=== PATIENT | female | born 1950 | race Caucasian/White ===

== ENCOUNTER 2019-11-28 18:01 | Inpatient (IN) ==
[2019-11-28] MEDS ORDERED: NS 1,000 ML IV ONE ×2 (18:47→21:43)
[2019-11-28 19:10] LABS: URINE SOURCE CLEAN CATCH
[2019-11-28 19:13] LABS: BILIRUBIN URINE NEGATIVE (NEGATIVE); BLOOD URINE TRACE (NEGATIVE); COLOR YELLOW; GLUCOSE URINE NEGATIVE (NEGATIVE); KETONE URINE NEGATIVE (NEGATIVE); LEUKOCYTES URINE LARGE (NEGATIVE); NITRITE URINE NEGATIVE (NEGATIVE); PH URINE 5.5; PROTEIN URINE TRACE mg/dL (NEGATIVE); SP GRAVITY URINE 1.023; TURBIDITY URINE HAZY (CLEAR); UR EPITHELIAL CELLS >10 /HPF (<10); URINE BACTERIA 1+ /HPF; URINE RBC <10 /HPF (<10); UROBILINOGEN URINE NORMAL (NORMAL)
--- NOTE | 2019-11-28 19:17 | Diag Imaging Result Doc PS360 ---
EXAM: CT HEAD W/O CONTRAST 11/28/2019 HISTORY: stroke symptoms, left hand numbness TECHNIQUE: This exam was performed using automated exposure control, adjustment of mA or kV according to patient size, and/or use of iterative reconstruction technique. COMMENT: There is no evidence of mass effect, bleed, or abnormal extra-axial fluid collection. The calvarium is intact. The visualized paranasal sinuses are clear. IMPRESSION: No evidence of acute disease. Electronically signed by Arjun Caba 11/28/2019 7:15 PM
[2019-11-28 19:20] LABS: UR AMPHETAMINES QUAL NONE DETECTED (NONE DETECT); UR BARBITUATES QUAL NONE DETECTED (NONE DETECT); UR BENZODIAZEPIN QUAL NONE DETECTED (NONE DETECT); UR CANNABINOIDS QUAL NONE DETECTED (NONE DETECT); UR COCAINE QUAL NONE DETECTED (NONE DETECT); UR METHADONE QUAL NONE DETECTED (NONE DETECT); UR METHAMPHETAMINE QUAL NONE DETECTED (NONE DETECT); UR OPIATES QUAL NONE DETECTED (NONE DETECT); UR OXYCODONE QUAL NONE DETECTED (NONE DETECT); UR PCP QUAL NONE DETECTED (NONE DETECT); UR PROPOXYPHENE QUAL NONE DETECTED (NONE DETECT); UR TCA QUAL NONE DETECTED (NONE DETECT)
--- NOTE | 2019-11-28 19:21 | Diag Imaging Result Doc PS360 ---
EXAM: CHEST-PORTABLE 11/28/2019 HISTORY: left hand numbness TECHNIQUE: AP portable at 1921 COMMENT: There is no evidence of acute cardiac or pulmonary disease. Compared to 01/10/2019 there has been no significant change. IMPRESSION: No acute disease. Electronically signed by Arjun Caba 11/28/2019 7:19 PM
[2019-11-28 20:16] LABS: BASO# 0.04 X1000 (0.0-0.2); BASO% 0.3 % (0.0-0.8); EOS# 0.24 X1000 (0.0-0.7); HEMATOCRIT 47.3 % (37.0-47.0); HEMOGLOBIN 14.7 g/dL (12.0-16.0); IMM GRAN# 0.06 X1000 (0.0-0.04); IMM GRAN% 0.5 % (0.0-0.5); LYMPH# 2.12 X1000 (1.2-3.4); MCH 27.1 PG (27-31); MCHC 31.1 g/dL (33-37); MCV 87.1 FL (81-99); MONO# 0.88 X1000 (0.11-0.59); MONO% 7.5 % (1.7-9.3); MPV 10.9 FL (7.4-10.4); NEUT# 8.43 X1000 (1.4-6.5); NEUT% 71.7 % (42.2-75.2); PLT 291 X1000 (130-400); RBC 5.43 XMIL (4.2-5.4); RDW 14.5 % (11.5-14.5); WBC 11.77 X1000 (4.8-10.8)
[2019-11-28] MEDS ORDERED: ASPIRIN PO ONE (20:29)
[2019-11-28 20:31] LABS: INR 0.94
[2019-11-28 20:32] LABS: PTT 28.5 Seconds (22.3-41.8)
[2019-11-28 20:44] LABS: AGAP 16; ALBUMIN 4.2 g/dL (3.5-5.0); ALKALINE PHOSPHATASE 98 U/L (32-104); BUN 15 mg/dL (8-22); CALCIUM 9.3 mg/dL (8.8-10.2); CHLORIDE 105 mmol/L (98-107); COSMO 282; CREATININE 0.7 mg/dL (0.5-0.9); ESTIMATED GFR > 60; GLUCOSE 94 mg/dL (70-104); GOT 14 U/L (10-30); GPT 11 U/L (10-36); POTASSIUM 4.3 mmol/L (3.5-5.1); SODIUM 141 mmol/L (136-145); TCO2 20 mmol/L (25-35); TOTAL PROTEIN 7.1 g/dL (6.3-8.3)
[2019-11-28] MEDS ORDERED: ROCEPHIN 1 GM in NS 50 ML IV ONE (20:55)
--- NOTE | 2019-11-28 21:42 | PROVIDER DOCUMENTATION ---
This chart was entered by Alondra Osei Scribe, acting as scribe for Jamison Lucero MD. HPI-Neurological Disorder - General Chief Complaint: Numbness Stated Complaint: WEAKNESS IN RIGHT ARM/HAND Time Seen by Provider: 11/28/19 19:15 Source: patient Allergies/Adverse Reactions: Patient Allergies Allergy/AdvReac Type Severity Reaction Status Date / Time corn Allergy SHORTNESS Verified 01/10/19 15:12 OF BREATH hydrocodone Allergy ITCHING Verified 01/10/19 15:12 Home Medications: Home Medication List Medication Instructions Recorded Confirmed Last Taken Type ATORVAstatin [Lipitor] 40 mg PO HS 07/30/17 07/30/17 07/29/17 History Diclofenac Sodium 1 applicatn PRN 07/30/17 Unknown History Duloxetine [Cymbalta] 60 mg PO BID 07/30/17 07/30/17 07/29/17 History Fluticasone 50 Mcg Nasal [place] 2 spray BID 07/30/17 07/30/17 07/29/17 History [Flonase] Lisinopril/Hydrochlorothiazide 1 tab PO HS 07/30/17 07/30/17 07/29/17 History [Lisinopril-Hctz 20-25 mg Tab] Lubiprostone [Amitiza] 8 mcg PO BID 07/30/17 07/30/17 07/29/17 History Mometasone Furoate 220 Mcg INH 1 puff PO BID 07/30/17 07/30/17 07/29/17 History [Asmanex 220 Microgm Inhaler] Naproxen 440 mg PO BID 07/30/17 07/30/17 07/29/17 History Tizanidine HCl [Zanaflex] 2 mg PO BID 07/30/17 07/30/17 07/29/17 History Tramadol [Ultram] 50 mg PO Q6H PRN PRN #12 tablet 07/30/17 Unknown Rx Azithromycin [Zithromax Z-Alvin] 250 mg PO DIRECTED #1 pkg 03/03/18 Unknown Rx Guaifenesin/Dm E.r. [Mucinex Dm] 1 each PO BID #20 tablet 03/03/18 Unknown Rx Methylprednisolone [Medrol Dosepak] 4 mg PO DIRECTED #1 package 03/03/18 Unknown Rx Cephalexin [Keflex] 500 mg PO TID #21 cap 12/21/18 Unknown Rx Prednisone 10 mg PO DAILY #21 tab 12/21/18 Unknown Rx Azithromycin [Zithromax Z-Alvin] 250 mg PO DIRECTED #1 pkg 01/10/19 Unknown Rx Methylprednisolone [Medrol Dosepak] 1 packet PO DIRECTED #1 pkg 01/10/19 Unknown Rx - History of Present Illness-Neuro Nature of Presenting Problem: PT IS A 69 YOWF C/O TREMORS AND NUMBNESS IN RT HAND AND GENERALIZED WEAKNESS STARTING TONIGHT. PT STS SHE GOT HOT WHILE COOKING DINNER AND WAS DIAPHORETIC. PT HAS NEVER HAD SYMPTOMS BEFORE. FELT "OFF BALANCE." NO SLURRED SPEECH OR SYNCOPE. HX HTN, SEASONAL ALLERGIES. LYING DOWN IMP SYMPTOMS AND STANDING/MVMT WORSENS. NONSMOKER, NO ALCOHOL OR DRUG USE. Review of Systems - Adult - REVIEW OF SYSTEMS - ADULT Constitutional: reports: no symptoms reported. denies: chills, fever, night sweats Eyes: reports: no symptoms reported Ears, Nose, Mouth & Throat: reports: no symptoms reported Cardiovascular: reports: no symptoms reported Respiratory: reports: no symptoms reported Gastrointestinal: reports: no symptoms reported Genitourinary: reports: no symptoms reported Musculoskeletal: reports: see HPI, muscle weakness (GENERALIZED). denies: back pain, joint swelling, muscle aches Integumentary: reports: no symptoms reported Neurological: reports: see HPI, numbness (RT HAND), tremors (RT HAND). denies: dizziness/vertigo, slurred speech, syncope Psychiatric: reports: no symptoms reported Endocrine: reports: no symptoms reported Hematologic/Lymphatic: reports: no symptoms reported Allergic/Immunologic: reports: no symptoms reported All Other Systems: Reviewed and Negative Past History - Adult - PAST MEDICAL HISTORY-ADULT Review of Records: reports: Nursing Assessment Review, Medications Reviewed, Social history reviewed & non-contributory. Major Childhood Illnesses: reports: denies history Cardiovascular: reports: HTN, other Respiratory: reports: asthma Gastrointestinal: reports: denies history Obstetrical/Gynecological: reports: denies history Genitourinary: reports: denies history Musculoskeletal: reports: fibromyalgia Neurological: reports: denies history Psychiatric: reports: anxiety Endocrine/Immune: reports: denies history Other Conditions: reports: denies history - PRIOR SURGERIES/PROCEDURES Surgical/Procedure History: reports: orthopedic (extremity), other - IMMUNIZATION STATUS Childhood Immunizations: See Nurse Assessment Flu Vaccine: See Nurse Assessment - FAMILY HISTORY Family History: reviewed, not pertinent - SOCIAL HISTORY Smoking: non-smoker Substance Use: none/never Physical Exam- Neurological - Physical Exam-Neuro Initial Vital Signs Reviewed: Yes General Appearance: appears well, alert, no apparent distress, obese. 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 negative: abnormal speech, facial asymmetry, facial droop, facial paresthesias, facial weakness Motor/Sensory: no motor deficit, no pronator drift, sensory deficit (LESS SENSORY TO RT HAND). negative: no sensory deficit, pronator drift (R), pronator drift (L), weak motor strength RLE, weak motor strength LLE Neurologic: sensory deficit (RT HAND). negative: no motor/sensory deficits, aphasia, facial droop, focal weakness, motor weakness Integumentary: normal color, normal turgor, warm/dry Psych/Mental Status: normal mood/affect, normal thought content, normal thought process, oriented x 3 - Glascow Coma Scale Best Eye Response: (4) open spontaneously Best Verbal Response: (5) oriented Best Motor Response: (6) obeys commands Total Glascow Score: 15 Progress - PLAN OF CARE/RESULTS Progress/Plan/Lab Results: Vital Signs - 8 hr 11/28/19 18:05 11/28/19 20:00 11/28/19 21:09 Temperature 97.4 F L Pulse Rate 83 74 75 Respiratory Rate 16 14 14 Blood Pressure 127/87 169/93 162/80 O2 Sat by Pulse Oximetry 96 96 99 Laboratory Results - last 24 hr 11/28/19 11/28/19 11/28/19 19:03 19:03 20:04 WBC 11.77 H RBC 5.43 H Hgb 14.7 Hct 47.3 H MCV 87.1 MCH 27.1 MCHC 31.1 L RDW Std Deviation 14.5 Plt Count 291 MPV 10.9 H Immature Gran % (Auto) 0.5 Neut % (Auto) 71.7 Lymph % (Auto) 18.0 L Barton % (Auto) 7.5 Eos % (Auto) 2.0 Baso % (Auto) 0.3 Immature Gran # (Auto) 0.06 H Neut # (Auto) 8.43 H Lymph # (Auto) 2.12 Barton # (Auto) 0.88 H Eos # (Auto) 0.24 Baso # (Auto) 0.04 PT INR PTT (Actin FS) Sodium Potassium Chloride Carbon Dioxide Anion Gap BUN Creatinine Estimated GFR/1.73 m2 BUN/Creatinine Ratio Glucose Calculated Osmolality Calcium Total Bilirubin AST ALT Alkaline Phosphatase Troponin T High Sens Total Protein Albumin Globulin Albumin/Globulin Ratio Urine Source CLEAN CATCH Urine Color YELLOW Urine Turbidity HAZY Urine pH 5.5 Ur Specific [place] 1.023 Urine Protein TRACE A Ur Glucose (Stick) NEGATIVE Ur Ketones (Stick) NEGATIVE Urine Blood TRACE A Urine Nitrite NEGATIVE Urine Bilirubin NEGATIVE Urobilinogen Dipstick NORMAL Urine Leukocytes LARGE A Urine WBC (Auto) 10-20 A Urine RBC (Auto) <10 U Epithel Cells (Auto) >10 A Urine Bacteria (Auto) 1+ Urine Opiates Screen NONE DETECTED Ur Oxycodone Screen NONE DETECTED Urine Methadone Screen NONE DETECTED U Propoxyphene Qual NONE DETECTED Ur Barbituates Screen NONE DETECTED Ur Tricyclics Screen NONE DETECTED Ur Phencyclidine Scrn NONE DETECTED Ur Amphetamines Screen NONE DETECTED U Methamphetamines Scrn NONE DETECTED U Benzodiazepines Scrn NONE DETECTED Urine Cocaine Screen NONE DETECTED U Cannabinoids Screen NONE DETECTED 11/28/19 11/28/19 11/28/19 20:04 20:04 20:04 WBC RBC Hgb Hct MCV MCH MCHC RDW Std Deviation Plt Count MPV Immature Gran % (Auto) Neut % (Auto) Lymph % (Auto) Barton % (Auto) Eos % (Auto) Baso % (Auto) Immature Gran # (Auto) Neut # (Auto) Lymph # (Auto) Barton # (Auto) Eos # (Auto) Baso # (Auto) PT 13.0 INR 0.94 PTT (Actin FS) 28.5 Sodium 141 Potassium 4.3 Chloride 105 Carbon Dioxide 20 L Anion Gap 16 BUN 15 Creatinine 0.7 Estimated GFR/1.73 m2 > 60 BUN/Creatinine Ratio 21 Glucose 94 Calculated Osmolality 282 Calcium 9.3 Total Bilirubin 0.20 AST 14 ALT 11 Alkaline Phosphatase 98 Troponin T High Sens < 6 Total Protein 7.1 Albumin 4.2 Globulin 3.0 Albumin/Globulin Ratio 1.0 Urine Source Urine Color Urine Turbidity Urine pH Ur Specific [place] Urine Protein Ur Glucose (Stick) Ur Ketones (Stick) Urine Blood Urine Nitrite Urine Bilirubin Urobilinogen Dipstick Urine Leukocytes Urine WBC (Auto) Urine RBC (Auto) U Epithel Cells (Auto) Urine Bacteria (Auto) Urine Opiates Screen Ur Oxycodone Screen Urine Methadone Screen U Propoxyphene Qual Ur Barbituates Screen Ur Tricyclics Screen Ur Phencyclidine Scrn Ur Amphetamines Screen U Methamphetamines Scrn U Benzodiazepines Scrn Urine Cocaine Screen U Cannabinoids Screen Orders Category Date Time Status Cardiac Monitoring DIRECTED Care 11/28/19 18:45 Active Finger Stick Blood Sugar (ED) DIRECTED Care 11/28/19 18:45 Active Saline Loc NOW Care 11/28/19 18:45 Active CHEST-PORTABLE [RAD] Stat Exams 11/28/19 18:[address] HEAD W/O CONTRAST [CT] Stat Exams 11/28/19 18:45 Completed CBC WITH ELECTRONIC DIFF [HEME] Stat Lab 11/28/19 20:04 Completed COMPREHENSIVE METABOLIC PANEL [CHEM] Stat Lab 11/28/19 20:04 Completed PROTIME WITH INR [COAG] Stat Lab 11/28/19 20:04 Completed PTT [COAG] Stat Lab 11/28/19 20:04 Completed TROPONIN T HIGH SENSITIVITY Stat Lab 11/28/19 20:04 Completed URINALYSIS W/POSS RFLX CULT [URINALYSIS] Stat Lab 11/28/19 19:03 Completed URINE CULTURE [RM] Routine Lab 11/28/19 19:15 Ordered URINE DRUG SCREEN [address] Stat Lab 11/28/19 19:03 Completed 0.9% Sodium Chloride Inj [Ns] 1,000 ml Med 11/28/19 18:47 Discontinued IV 999 mls/hr Aspirin Med 11/28/19 20:29 Discontinued 325 mg PO NOW ONE CefTRIAXONE [Rocephin] 1 gm Med 11/28/19 20:55 Discontinued 0.9% Sodium Chloride Inj [Ns] 50 ml IV NOW EKG [EKG] Stat Ther 11/28/19 18:45 Ordered Result Diagrams: 11/28/19 20:04 11/28/19 20:04 - EKG 1 Time of EKG reading by physician:: 19:28 EKG Read and Signed by:: Jamison Lucero EKG Interpretation (*Must complete 3 of following elements*): Abnormal Rate: 76 Rhythm: NSR [place]: normal QRS: LVH (MINIMAL VOLTAGE CRITERIA FOR LVH, MAY BE NORMAL VARIANT) WA Interval: normal ST Wave: non-specific ST changes (T WAVE ABNORAMLITY, CONSIDER ANTERIOR ISCHEMIA) - XRAY 1 XRAY Study: Chest Impression: Normal, See EMR Report ( EXAM: CHEST-PORTABLE 11/28/2019 HISTORY: left hand numbness TECHNIQUE: AP portable at 1921 COMMENT: There is no evidence of acute cardiac or pulmonary disease. Compared to 01/10/2019 there has been no significant change. IMPRESSION: No acute disease. Electronically signed by Arjun Caba 11/28/2019 7:19 PM) Comparison with other Films: no changes - CT/MRI 1 CT Study: Head Impression: Normal, See EMR Report ( EXAM: CT HEAD W/O CONTRAST 11/28/2019 HISTORY: stroke symptoms, left hand numbness TECHNIQUE: This exam was performed using automated exposure control, adjustment of mA or kV according to patient size, and/or use of iterative reconstruction technique. COMMENT: There is no evidence of mass effect, bleed, or abnormal extra-axial fluid collection. The calvarium is intact. The visualized paranasal sinuses are clear. IMPRESSION: No evidence of acute disease. Electronically signed by Arjun Caba 11/28/2019 7:15 PM) - CONSULTS/PCP/HOSPITALIST Notification #1 *Consult/PCP/Hospitalist*: [facility] Time Discussed: 20:10 Consult Disposition: other #2 Consult: [facility] NE[facility]O DR. OWUSU Time Discussed: 20:20 Consult Disposition: other (WORK PT UP TO BE ADMITTED TO [facility]. NO TPA) #3 Consult: DR. PEDRO Time Discussed: 21:26 Consult Disposition: Admit Departure - Departure Date of Disposition Decision: 11/28/19 Time of Disposition Decision: 21:41 DIAGNOSIS: Weakness, Numbness and tingling, UTI (urinary tract infection), TIA (transient ischemic attack) Disposition: ADMITTED INPATIENT 09 Certified Medical Emergency: Emergent Condition: Fair Referrals and Follow-Ups: None,PCP [Primary Care Provider] - - Critical Care Note This patient required my direct & personal management of CC.: No Attestation - Physician/ IVÁN Attestation Patient care was provided by Advanced Practice Provider:: No The physician spent face to face time with patient:: Yes Advanced Practice Provider documentation review:: Supervising physician onsite a nd consulted in the evaluation and care of this patient. The physician did have a face to face encounter with the patient. - NIH Stroke Scale Level of Consciousness: 0-Alert LOC Questions (ask month and age): 0-Answers Both Correctly LOC Commands (ask to open & close eyes;make a fist, let go): 0-Obeys Both Cor rectly Best Gaze (horizontal eye movement): 0-Normal Visual (use finger movement, counting or visual threat): 0-No Visual Loss Facial Palsy (show teeth or raise eyebrows & close eyes tght: 0-Symmetrical Movement Motor Function-left arm: 0-Normal Motor Function-right arm: 0-Normal Motor Function-left le-Normal Motor Function-right le-Normal Limb Ataxia(bwjyzg-[id number], or heel to bruno): 0-No Ataxia Sensory(pin prick to face,arms,trunk,legs-compare side/side): 1-Mild to Moderate Decrease in Sensation Best Language(name item/read sentence.Ex-Down to Earth): 0-No Aphasia Dysarthria(Pt read words or say words Ex.Mama,Tip-Top,Thanks: 0-Normal Articulation Extinction and Inattention: 0-Normal Modified Smith Score Criteria: 2-slight disability This chart was documented by the indicated scribe, (Alondra Osei, Scribe) and accurately reflects the services I performed and decisions made by me, Jamison Lucero MD, as attested by the provider's signature.
[2019-11-28] MEDS ORDERED: TYLENOL PO PRN (21:43)
[2019-11-28] MEDS ORDERED: ZOFRAN IV PRN (21:43)
--- NOTE | 2019-11-28 23:19 | EKG Report ---
Test Performed on : 11/28/2019 7:28:41 PM Test Reason : left hand numbness Blood Pressure : / mmHG Vent. Rate : 076 BPM Atrial Rate : 076 BPM P-R Int : 152 ms QRS Dur : 092 ms QT Int : 422 ms P-R-T Axes : 046 -12 036 degrees QTc Int : 474 ms Normal sinus rhythm. Minimal voltage criteria for LVH, may be normal variant T wave abnormality, consider anterior ischemia Prolonged QT Abnormal ECG No previous ECGs available Unconfirmed Result
[2019-11-29 06:20] LABS: BASO# 0.04 X1000 (0.0-0.2); BASO% 0.4 % (0.0-0.8); EOS# 0.25 X1000 (0.0-0.7); EOS% 2.4 % (0.0-10.0); HEMATOCRIT 44.7 % (37.0-47.0); HEMOGLOBIN 13.4 g/dL (12.0-16.0); IMM GRAN# 0.03 X1000 (0.0-0.04); IMM GRAN% 0.3 % (0.0-0.5); LYMPH# 3.48 X1000 (1.2-3.4); LYMPH% 33.3 % (20.5-51.1); MCH 26.3 PG (27-31); MCV 87.6 FL (81-99); MONO# 0.89 X1000 (0.11-0.59); MONO% 8.5 % (1.7-9.3); NEUT# 5.76 X1000 (1.4-6.5); NEUT% 55.1 % (42.2-75.2); PLT 323 X1000 (130-400); RDW 14.4 % (11.5-14.5); WBC 10.45 X1000 (4.8-10.8)
[2019-11-29 06:28] LABS: AGAP 13; ALBUMIN 3.6 g/dL (3.5-5.0); ALKALINE PHOSPHATASE 89 U/L (32-104); BUN 15 mg/dL (8-22); CHLORIDE 106 mmol/L (98-107); COSMO 279; CREATININE 0.6 mg/dL (0.5-0.9); ESTIMATED GFR > 60; GLUCOSE 101 mg/dL (70-104); GOT 13 U/L (10-30); GPT 9 U/L (10-36); POTASSIUM 3.9 mmol/L (3.5-5.1); SODIUM 139 mmol/L (136-145); TCO2 21 mmol/L (25-35); TOTAL PROTEIN 6.6 g/dL (6.3-8.3)
[2019-11-29] MEDS ORDERED: DUONEB (A & A) INH PRN (08:49)
[2019-11-29] MEDS ORDERED: ROCEPHIN 1 GM in NS 50 ML IV SCH ×2 (09:00→21:00)
[2019-11-29] MEDS ORDERED: BUSPAR PO SCH (09:00)
[2019-11-29] MEDS: BREO ELLIPTA 100/25 MCG INH INH SCH (10:00)
[2019-11-29] MEDS: ZANAFLEX PO SCH ×3 (10:01→20:28)
[2019-11-29] MEDS: SINGULAIR PO SCH (10:01)
[2019-11-29] MEDS: NAPROSYN PO SCH (10:02)
[2019-11-29] MEDS: PRINIVIL PO SCH (10:02)
[2019-11-29] MEDS: ASPIRIN PO SCH (10:02)
[2019-11-29] MEDS: CYMBALTA PO SCH ×2 (10:02→20:28)
[2019-11-29] MEDS: FLONASE NAS SCH (10:02)
[2019-11-29] MEDS: AMITIZA PO SCH ×2 (10:04→16:46)
[2019-11-29 10:55] LABS: HEMOGLOBIN A1C 5.5 % (4.8-6.0)
[2019-11-29] MEDS: BUSPAR PO SCH ×2 (11:22→20:28)
--- NOTE | 2019-11-29 13:11 | HISTORY AND PHYSICAL ---
PRIMARY CARE PROVIDER: No one. CHIEF COMPLAINT: Right-sided weakness, tremor, and numbness and tingling. HISTORY OF PRESENT ILLNESS: Ms. Delia Soriano is a 69-year-old female with a medical history of morbid obesity and a BMI of 50.6, hypertension, asthma, fibromyalgia, anxiety, hyperlipidemia, and sleep apnea. Wears a CPAP at night. States that around 5:30 yesterday, she started noticing her right hand started trembling and that the palm and the fingertips in her hand became numb and tingly. Her right arm became weak. She did not notice any changes as far strength on her right leg, but noticed it did feel a little bit more numb than the left leg. She felt foggy-headed, but her speech remained clear. She felt to just a little bit off balance. Prior to that, she was cooking, got hot and diaphoretic. She has never had these symptoms before. She stated that the symptoms started around 5:30 and it almost resolved around 2 o'clock this morning, but she still continues to have a little bit of numbness and tingling in her right upper and lower extremities. Neurological exam is intact. However, she does have the numbness and tingling on the right upper and lower extremity. So, we will complete a full stroke evaluation. PAST MEDICAL HISTORY: 1. Morbid obesity BMI of 50.6. 2. Asthma. 3. Hypertension. 4. Fibromyalgia. 5. Anxiety. 6. Hyperlipidemia. 7. Obstructive sleep apnea, wears CPAP at night. 8. Seasonal allergies. PAST SURGICAL HISTORY: Left heel spur removed. SOCIAL HISTORY: Denies tobacco, but was exposed to secondhand smoke from her for 35 years. However, he 12 years ago. She lives with her son and [id number]. 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 Denies alcohol or illicit drug use and has no difficulties with ambulation at home. FAMILY HISTORY: Mother; atrial fibrillation. Father; 2 heart attacks, his first was in his early 60s. ALLERGIES: [place] and hydrocodone. She also claims that she has an allergy to Ultram, it causes her to have itching internally. HOME MEDICATIONS: 1. Amitiza 8 mcg p.o. twice a day. 2. Breo Ellipta 1 puff inhaled daily. 3. BuSpar 15 mg p.o. twice daily. 4. Cymbalta 60 mg p.o. twice daily. 5. Flonase daily. 6. Lisinopril 10 mg p.o. daily. 7. Naproxen 500 mg p.o. daily. 8. Singulair 10 mg p.o. daily. 9. Zanaflex 2 mg p.o. t.i.d. REVIEW OF SYSTEMS: Fourteen point review of systems are complete and all were negative for those mentioned above HPI. PHYSICAL EXAMINATION: VITAL SIGNS: Temperature 97.9 degrees, heart rate 72, respiratory rate 16, blood pressure 153/88, O2 saturation 99% on room air. GENERAL: Ms. Delia Soriano is a 69-year-old female. She is in no acute distress. She is able answer questions appropriately. HEENT: Atraumatic, normocephalic. Pupils equal, round, reactive to light. Extraocular movements intact. Mucous membranes are moist. NECK: Trachea midline. CARDIOVASCULAR: S1, S2. Regular rate and rhythm. No rubs, gallops, murmurs. No lower extremity edema. +2 dorsalis and radial pulses. Negative JVD or carotid bruits. PULMONARY: Clear to auscultation, bilateral breath sounds. No accessory muscle use or work of breathing noted. GI: Soft, nontender, nondistended. Positive bowel sounds x4. EXTREMITIES: Moves all extremities equally. Full range of motion. NEUROLOGIC: Alert and oriented x3. Follows commands. Decreased sensory in the right upper and lower extremity. SKIN: Warm, dry, intact. LABORATORY DATA: White blood cells 10,000, hemoglobin 13, hematocrit 44, platelet count 323,000. Sodium 139, potassium 3.9, BUN 15, creatinine 0.6, glucose 101, calcium 9.0, bilirubin 0.20, AST 13, ALT 9, albumin is 3.6. Urinalysis; trace protein, trace blood, large leukocytes, 10 to 20 white blood cells, 1+ bacteria. Urine drug screen negative. IMAGING: Head CT; no acute disease. Chest x-ray; no acute disease. EKG sinus rhythm, rate 76, QTc 474. ASSESSMENT AND PLAN: 1. Transient ischemic attack versus cerebrovascular accident. She is still having numbness and tingling in the right upper and lower extremity, but all other symptoms have since resolved. She will have brain MRI, MRA, and carotid ultrasound. Echocardiogram to fully evaluate. Add a hemoglobin A1c and a lipid panel. Physical Therapy consult. 2. Hypertension. Continue home medications. 3. Asthma. Continue nebulizers as needed. 4. Morbid obesity. Diet and exercise recommended. 5. Anxiety with fibromyalgia. Continue Cymbalta, BuSpar, naproxen and Zanaflex. 6. Seasonal allergies. Continue Singulair. 7. Deep venous thrombosis prophylaxis, SCDs. Dictated by TOPHER Plunkett for Theo Musa MD cc: TOPHER Plunkett MD
--- NOTE | 2019-11-29 16:18 | Diag Imaging Result Doc PS360 ---
MRA BRAIN W/O CONTRAST - 11/29/2019 INDICATION: cva symptoms TECHNIQUE: Noncontrast dxjm-st-nqixax technique was used COMPARISON: None FINDINGS: There is severe patient motion artifact distorting the exam. The major intracranial arteries are patent. No aneurysm. IMPRESSION: No obvious abnormality. Electronically signed by Jaylen Craven 11/29/2019 4:16 PM
--- NOTE | 2019-11-29 16:20 | Diag Imaging Result Doc PS360 ---
MRI BRAIN - 11/29/2019 INDICATION: cva symptoms COMPARISON: Head CT 11/28/2019 FINDINGS: There is significant patient motion artifact. There is a small focal old infarction at the posterior right occipital lobe. Otherwise, the ventricles and sulci are normal in size and contour. No area of restricted diffusion. No intracranial mass or hemorrhage. There is some mild deep cerebral white matter hyperintensity compatible with chronic microvascular ischemia. This also affects the clay and to a moderate extent. IMPRESSION: Chronic ischemic changes of the brain. No acute abnormality. Electronically signed by Jaylen Craven 11/29/2019 4:18 PM
--- NOTE | 2019-11-29 16:34 | Vascular Study Report ---
EXAM: Carotid Ultrasound HISTORY: cva symptoms TECHNIQUE: Carotid Doppler ultrasound COMPARISON: None. FINDINGS: Right: No occlusion or stenosis in the common carotid artery. No plaque. No plaque in the bulb. The peak systolic velocity in the internal carotid artery 63 cm/s. The ICA/CCA ratio 0.79. Antegrade vertebral flow. Left: There is normal flow in the common carotid artery. No occlusion or stenosis. Minimal plaque in the bulb. The peak systolic velocity in the internal carotid artery 73 cm/s. The ICA/CCA ratio 0.92. Antegrade vertebral flow. IMPRESSION: No stenosis over 40%. Electronically signed by Davy Moralez 11/29/2019 4:31 PM
--- NOTE | 2019-11-29 22:59 | PROGRESS NOTE ---
DATE: 11/29/2001 SUBJECTIVE/PLAN: Patient presented to the hospital with numbness and tingling in her right hand. Most of her symptoms have improved. We are going to admit to the hospital, will place her on antibiotics as she may have a urinary infection and begin workup. Further orders as needed. cc: Theo Musa MD
[2019-11-30 06:21] LABS: BASO# 0.04 X1000 (0.0-0.2); BASO% 0.4 % (0.0-0.8); EOS% 3.1 % (0.0-10.0); HEMOGLOBIN 13.7 g/dL (12.0-16.0); IMM GRAN# 0.04 X1000 (0.0-0.04); IMM GRAN% 0.4 % (0.0-0.5); LYMPH% 29.2 % (20.5-51.1); MCH 26.4 PG (27-31); MCHC 30.4 g/dL (33-37); MCV 86.9 FL (81-99); MONO# 0.55 X1000 (0.11-0.59); MONO% 5.7 % (1.7-9.3); MPV 11.2 FL (7.4-10.4); NEUT# 5.85 X1000 (1.4-6.5); NEUT% 61.2 % (42.2-75.2); PLT 327 X1000 (130-400); RBC 5.18 XMIL (4.2-5.4); RDW 14.4 % (11.5-14.5); WBC 9.58 X1000 (4.8-10.8)
[2019-11-30 06:39] LABS: AGAP 16; ALBUMIN 3.8 g/dL (3.5-5.0); ALKALINE PHOSPHATASE 92 U/L (32-104); BUN 16 mg/dL (8-22); CALCIUM 9.1 mg/dL (8.8-10.2); CHLORIDE 105 mmol/L (98-107); COSMO 283; CREATININE 0.7 mg/dL (0.5-0.9); ESTIMATED GFR > 60; GLUCOSE 139 mg/dL (70-104); GOT 14 U/L (10-30); GPT 10 U/L (10-36); MAGNESIUM 1.9 mg/dL (1.5-2.7); POTASSIUM 3.8 mmol/L (3.5-5.1); SODIUM 140 mmol/L (136-145); TCO2 20 mmol/L (25-35); TOTAL PROTEIN 6.8 g/dL (6.3-8.3)
[2019-11-30 08:02] VITALS: BP 156/74
[2019-11-30] MEDS: BREO ELLIPTA 100/25 MCG INH INH SCH (08:43)
[2019-11-30] MEDS: FLONASE NAS SCH (09:32)
[2019-11-30] MEDS: ASPIRIN PO SCH (09:32)
[2019-11-30] MEDS: NAPROSYN PO SCH (09:32)
[2019-11-30] MEDS: BUSPAR PO SCH (09:32)
[2019-11-30] MEDS: AMITIZA PO SCH ×2 (09:32→09:34)
[2019-11-30] MEDS: PRINIVIL PO SCH (09:32)
[2019-11-30] MEDS: SINGULAIR PO SCH (09:33)
[2019-11-30] MEDS: ZANAFLEX PO SCH (09:33)
[2019-11-30] MEDS: CYMBALTA PO SCH (09:33)
--- NOTE | 2019-11-30 14:58 | DISCHARGE SUMMARY ---
ADMISSION DATE: 11/28/2019 DISCHARGE DATE: 11/30/2019 She presented on 11/28/2019. ADMISSION DIAGNOSES: 1. Transient ischemic attack versus cerebrovascular accident. 2. Hypertension. 3. Asthma. 4. Morbid obesity. 5. Anxiety with fibromyalgia. 6. Seasonal allergies. DISCHARGE DIAGNOSES: 1. Urinary tract infection. 2. Most likely a transient ischemic attack. There are no obvious signs of cerebrovascular accident. Symptoms have resolved. 3. Asthma, stable. 4. Hypertension, stable. 5. Morbid obesity. 6. Anxiety and fibromyalgia. CONSULTATIONS: None. SURGERIES AND PROCEDURES: None. HOSPITAL COURSE: Ms. Delia Soriano is a 69-year-old, morbidly obese female with a medical history of hypertension, morbid obesity with a BMI of 50.6, asthma, hyperlipidemia, sleep apnea--she wears CPAP at night, who apparently started having symptoms of right upper and lower extremity numbness and tingling with trembling in the right upper extremity. She did not have any changes in her speech. Her head felt a little foggy and she felt like she was a little off balance. Apparently, she was cooking, got hot and sweaty. This started around 5:30 the day before. She was admitted and lasted until about 2:00 that morning. Full workup did not reveal any acute stroke. She did have some symptoms of urinary tract infection, for which that was treated and so it is a possibility that this could have been just a transient ischemic attack. Physical Therapy did see her as well while she was in here. DISCHARGE VITAL SIGNS: Temperature 98.0 degrees, heart rate 65, respiratory rate 18, blood pressure 156/74, O2 saturation 99% on room air. DISCHARGE LAB DATA: White blood cells 9,000, hemoglobin 13, hematocrit 45, platelet count 327,000. Sodium 140, potassium 3.8, BUN 16, creatinine 0.7 glucose 139. Hemoglobin A1c was 5.5, calcium 9.1, magnesium 1.9, bilirubin 0.30, AST 14, ALT 10. Albumin 3.8, triglycerides 188, total cholesterol 218. Urine culture actually showed no growth. PERTINENT IMAGING: On November 28 chest x-ray, no acute disease. Head CT, no acute disease. Brain MRI, no obvious hemorrhagic abnormality. Brain MR, chronic ischemic changes, no acute findings. Carotid ultrasound, less than 40% bilaterally. EKG, normal sinus rhythm, rate 76, QTc is 474. DISCHARGE MEDICATIONS: 1. Lipitor 20 mg p.o. daily. 2. Zanaflex 2 mg p.o. t.i.d. 3. Singular 10 mg p.o. daily. 4. Naproxen 500 mg p.o. daily. 5. Lisinopril 10 mg p.o. daily. 6. Flonase 1 spray inhaled daily. 7. Cymbalta 60 mg p.o. twice daily. 8. BuSpar 15 mg p.o. twice daily. 9. Breo Ellipta 1 puff inhaled daily. 10. Amitiza 8 mcg p.o. twice daily. PHYSICIAN FOLLOWUP: None. DISCHARGE ACTIVITY: As tolerated. DISCHARGE DIET: Heart healthy, diabetic. DISCHARGE INSTRUCTIONS: If your condition changes, contact physician and/or return to the emergency department. Changes may include, but not limited to shortness of breath, increased fatigue, excessive bleeding, unexplained weight loss or gain, unmanageable pain, signs or symptoms of infection. DISCHARGE DISPOSITION: Home. Dictated by TOPHER Plunkett for Theo Musa MD cc: TOPHER Plunkett MD
--- NOTE | 2019-12-01 04:24 | DISCHARGE SUMMARY ---
ADMISSION DATE: 11/28/2019 DISCHARGE DATE: 11/30/2019 ADDENDUM: Patient seen and examined on discharge. She is awake, alert. She is in no distress. Her right-sided weakness and tremors have all resolved. She had a TIA. Discussed with her the importance of controlling her cholesterol. Her LDL as 149. She notes that she was told to take statins in the past but had stopped. We will continue to follow. She will follow up outpatient with primary care. cc: Theo Musa MD
--- NOTE | 2019-12-01 09:24 | ECHO REPORT ---
ORDER DATE: 11/29/2019 MEASUREMENTS: Septal thickness 1.1, left ventricular internal diameter in diastole 4.2, left ventricular internal diameter in systole 2.3, aortic root 3.4, left atrium 2.3. SUMMARY: 1. Technically difficult study due to limited acoustic window quality. No true parasternal views available. Intravenous echo contrast agent, Optison, was utilized to enhance endocardial definition. 2. Aortic valve is not well imaged, but on apical views appears sclerotic. The peak gradient across the aortic valve was approximately 20 mmHg, with a mean gradient of 12 mmHg. Minimal aortic stenosis is suggested. Mitral and tricuspid valves are without gross structural abnormality. Pulmonic valve is not seen. There is trace mitral regurgitation and trace tricuspid regurgitation. The aortic root is normal size. 3. Grossly normal left ventricular dimensions suggested. The estimated left ventricular ejection fraction appears to be at least 65%. No obvious wall motion abnormality can be appreciated. Left atrium, right atrium, and right ventricle are grossly normal in size. 4. No pericardial effusion. 5. Appearance of inferior vena cava suggests normal central venous pressure. cc: MD Theo May MD
== END 2019-11-30 11:20 | disposition home or self-care (01) | DRG 69 ==
LOC: P.ED 18:01 → P.MEDSURG 22:26 → SUATTDRO 22:26
PROVIDERS: ATTEND Family Medicine